=== PATIENT | female | born 1985 | race Caucasian/White ===

== ENCOUNTER 2016-11-15 09:56 | Emergency (ER) | payer MEDICAID, OTHER ==
[2016-11-15] MEDS ORDERED: KETOROLAC TROMETHAMINE 60 MG/2 ML VIAL IM ONE ×2 (10:22→10:42)
[2016-11-15] MEDS ORDERED: ONDANSETRON 4 MG TAB.RAPDIS PO ONE (10:22)
--- OUTSIDE RECORDS SUMMARY | 2016-11-15 10:33 | XMS REPORT | Continuity of Care Document ---
:1985 Author Organization [employer] [place] [address] Care Team Providers Name Role Phone Polo Shaw Primary Care Provider [phone] Source Comments This disclosure is being made pursuant to the [employer] program and maynot contain all information available regarding this patient.[employer] Active Allergies and Adverse Reactions Allergen Noted Date Severity Reactions Comments Latex 06/22/2012 Low Rash Current Medications Be aware that medications may not be up to date as of this document. Alwaysverify current medications with the patient. Prescription Sig. Disp. Refills Start Date End Date Status acetaminophen-codeine Take 1 tablet by Active (TYLENOL #3) 300-30 MG mouth every 4 per tablet (four) hours as needed. Active Problems Currently Estimated Date of Delivery Comments Yes No additional problems on file Social History Tobacco Use Types Packs/Day Years Used Date Current Every Day Smoker Tobacco Cessation:Ready to Quit: Yes; Counseling Given: Yes Comments: Alcohol Use Drinks/Week oz/Week Comments No Last Filed Vital Signs Vital Sign Reading Time Taken Blood Pressure 108/65 06/22/2012 11:30 AM JOB ORDER CLERK Pulse 76 06/22/2012 11:30 AM JOB ORDER CLERK Temperature 37.3 C (99.1 F) 06/22/2012 9:43 AM JOB ORDER CLERK Respiratory Rate 16 06/22/2012 11:30 AM JOB ORDER CLERK Height 1.626 m (5' 4") 06/22/2012 9:43 AM JOB ORDER CLERK Weight 66.225 kg (146 lb) 06/22/2012 9:43 AM JOB ORDER CLERK Body Mass Index 25.05 06/22/2012 9:43 AM JOB ORDER CLERK Oxygen Saturation - - Plan of Care Health Maintenance Due Date Last Done Comments Retired-Pertussis Vaccine Adult 02/04/2004 Retired-Tetanus Vaccine Adult 02/04/2004 Pap Smear 2006 Retired-INFLUENZA VACCINE 12/29/2014 Results from Last 3 Months Not on file
[2016-11-15] MEDS ORDERED: ONDANSETRON 4 MG TAB.RAPDIS ONE (10:42)
[2016-11-15 10:43] LABS: Hematocrit 42.8 % (37.0-47.0); Hemoglobin 14.9 gm/dL (12.5-16.0); Mean Cell Volume 78.8 fl (78-100); Mean Corpuscular Hemoglobin 27.4 pg (27-31); Mean Corpuscular Hgb Conc 34.8 g/dl (32-36); Mean Platelet Volume 10.1 fl (6.0-9.5); Neutrophil # 3.2 K/mm3 (1.3-6.0); Platelet Count 272 K/mm3 (150-450); Red Blood Count 5.43 M/mm3 (4.2-5.4); Red Cell Distribution Width 13.5 % (11.5-14.0); White Blood Count 5.4 K/mm3 (4.0-10.5)
--- NOTE | 2016-11-15 10:45 | ERNOTE ---
Abdominal HPI - Narrative Date of Service: 11/15/16 - General Chief Complaint: Abdominal Pain Time Seen by Provider: 11/15/16 10:10 Source: patient, RN notes reviewed Exam Limitations: no limitations - Immun/Allergies/Home Medications Immunizatons: IMMUNIZATION HX Immunizations Up to Date Yes History of Influenza Vaccine Yes Hx Pneumococcal Vaccination Yes Allergies/Adverse Reactions: Allergies No Known Allergies Allergy (Unverified 11/15/16 10:08) Home Medications: HOME MEDICATIONS Nitrofurantoin Macrocrystal [Nitrofurantoin] 100 mg PO BID #10 capsule 11/15/16 [Last Taken Unknown] Ondansetron [Zofran Odt] 8 mg PO Q8H PRN #12 tab 11/15/16 [Last Taken Unknown] - History of Present Illness Narrative: 31 y/o female ambulatory to the ED for abdominal pain that began today. She has been having nausea and vomiting as well. This began 2 days ago. She reports having a "normal" bowel movement yesterday. She also reports a fever of 102 last evening. She is s/p hysterectomy. Her pain is in her left lower quadrant and radiates to the left flank. Quality: cramping Prior Abdominal Problems: Present: none Prior Treatment: Absent: recently seen Review of Systems - Review of Systems Constitutional: Present: fever, chills, malaise EYE: Present: no symptoms reported ENT: Present: no symptoms reported Respiratory: Absent: shortness of breath, cough Cardiology: Absent: chest pain, syncope Gastrointestinal/Abdominal: Present: nausea, vomiting, abdominal pain. Absent: diarrhea, constipation Genitourinary: Absent: frequency, dysuria, hematuria Musculoskeletal: Present: back pain. Absent: neck pain, joint pain Skin: Absent: rash, lesions Neurological: Absent: headache, dizziness/light-headedness Endocrine: Present: no symptoms reported Hematologic/Lymphatic: Present: no symptoms reported Psych: Present: no symptoms reported - Patient's Past Medical History Patient History - Medical: No pertinent hx Patient History - Cardiac/Respiratory: No pertinent hx Patient History - Cancer: No Hx of Cancer Patient History - Surgical Procedures: Hysterectomy Patient History - Other: None LMP (females 10-50): s/p hysterectomy - Social History Living Situations: home Psych History: Hx of Anxiety Smoking Status: Current every day smoker Cigarettes Packs Per Day: 0.5 Alcohol Use: none Drug Use: none - Immunizations Immunizations Up to Date: Yes Hx Pneumococcal Vaccination: Yes History of Influenza Vaccine: Yes Physical Exam - Physical Exam General Appearance: Present: wd/wn, alert, no apparent distress Neck: Present: normal inspection, nontender, supple, full range of motion Respiratory: Present: no respiratory distress, normal breath sounds, no accessory muscle use, lungs clear Cardiovascular/Chest: Present: regular rate, rhythm, no murmur, normal peripheral pulses Gastrointestinal/Abdominal: Present: nondistended, soft, tenderness - Left lower quadrant, moderate, abnormal bowel sounds - hypoactive. Absent: mass, hernia Back Exam: Present: normal range of motion, CVA tenderness (L). Absent: no vertebral tenderness, CVA tenderness (R) Extremity Exam: Present: normal inspection Neurological Exam: Present: alert, oriented, normal mood/affect, no motor/ sensory deficits Skin Exam: Present: normal color, warm/dry ED Progress - Results and Orders Patient's Lab Results:: I have reviewed the patient's lab results. - Vital Signs Patient's Vital Signs:: I have reviewed the patient's vital signs. Vital Signs: Vital Signs 11/15/16 10:02 Temperature 36.7 C Pulse Rate 86 Respiratory 16 Rate Blood Pressure 127/85 O2 Sat by Pulse 98 Oximetry - X-Ray X-Ray #1 X-Ray: abdomen Interpretation: Reviewed by me X-ray Comments: Nonobstructive bowel gas pattern. Calcification seen in right does not correlate clinically with the patient's symptoms. - Progress/Reassessment Chief Complaint: Abdominal Pain Progress:: Improved Plan - Plan Plan: Unremarkable work-up aside from possible UTI, will treat with Macrobid pending cultures. Departure - Departure Clinical Impression: Abdominal pain in female patient UTI (urinary tract infection) Qualifiers: Urinary tract infection type: acute cystitis Hematuria presence: without hematuria Qualified Code(s): N30.00 - Acute cystitis without hematuria Disposition: Home Follow Up Needed Condition: Stable Instructions: Abdominal Pain, Adult, [id number], Form - Excuse from Work, School, or Physical Activity Prescriptions: Nitrofurantoin Macrocrystal [Nitrofurantoin] 100 mg PO BID #10 capsule Ondansetron [Zofran Odt] 8 mg PO Q8H PRN #12 tab PRN Reason: Nausea
[2016-11-15 10:47] LABS: Anion Gap 12.5 mmol/L (6.8-13.8); BUN/Creatinine Ratio 17.4 (9.0-21.6); Bilirubin, Total 0.9 mg/dL (0.0-1.1); Ca. Corrected For Albumin 8.5 mg/dL (8.4-10.2); Calcium * 8.8 mg/dL (7.9-10.9); Carbon Dioxide 25.2 mmol/L (24-32.6); Potassium 3.7 mmol/L (3.4-4.6); Total Protein 7.4 gm/dL (6.2-8.2)
[2016-11-15 10:58] LABS: Urine Bilirubin Negative (NEGATIVE); Urine Blood Negative /ul (NEGATIVE); Urine Ketone Negative (NEGATIVE); Urine Nitrite Negative (NEGATIVE); Urine Protein Negative (NEGATIVE); Urine Specific Gravity 1.015 SP.GR. (1.005-1.010); Urine Urobilinogen Normal (NORMAL)
[2016-11-15 11:05] LABS: Urine Appearance Clear; Urine Color Yellow
[2016-11-15 11:06] LABS: Urine Bacteria TRACE; Urine RBC None Seen /hpf (0-5)
[2016-11-15 11:53] VITALS: BP 107/76
== END 2016-11-15 12:06 | disposition home or self-care (01) ==
LOC: ER 09:56
DX: N30.00 Acute cystitis without hematuria (principal); R10.32 Left lower quadrant pain; F17.210 Nicotine dependence, cigarettes, uncomplicated